=== PATIENT | female | born 1950 | race Caucasian/White ===

== ENCOUNTER → 2021-04-29 08:40 | Outpatient (BNVA) | payer OTHER, SELFPAY | PROVIDERS: PCP Internal Medicine; Referring Provider Internal Medicine; Visit Provider Physician Assistant | DX: Z12.11 Encounter for screening for malignant neoplasm of colon (principal); K59.09 Other constipation; Z78.9 Other specified health status | CPT/HCPCS: 99202 ==

== ENCOUNTER 2023-03-30 12:03 | Outpatient (AMB) | payer OTHER, SELFPAY ==
--- NOTE | 2023-03-30 12:12 | A.OFFVIS_ITS ---
Intake Vital Signs 03/30/23 12:20 Height 5 ft 2 in Weight 123 lb BMI 22.5 BP 150/72 H Blood Pressure Location Lt brachial Position Sitting Pulse 59 Intake Visit Reasons: pt requested appointment Intake Note: Patient follow up chronic constipation. Patient cc: constipation, GERD with burning sensation,and dysphagia with SOB. 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 Required: Yes Accompanied by: Daughter Allergies No Known Allergies Allergy (Verified 03/30/23 12:12) Medication List - Last Reconciled 03/30/23 by Dana Banda PA-C aspirin (Adult Aspirin Regimen) 81 mg PO DAILY atorvastatin 80 mg PO DAILY bisacodyl (Gentle Laxative (bisacodyl)) 10 mg [place] DAILY PRN docusate sodium (Colace) 200 mg (2 x 100 mg) PO BEDTIME ibuprofen 200 mg PO Q6H PRN levothyroxine 50 mcg PO DAILY meclizine 12.5 mg PO DAILY PRN methylcellulose (laxative) (Citrucel) 500 mg PO BID polyethylene glycol 3350 (Miralax) 17 grams PO DAILY torsemide 20 mg PO DAILY HPI HPI Comments History of Present Illness Details 73-year-old female multiple GI complaints - GERD, SOB her biggest c/o- she says she say pulmonary dr- all is fine Acid reflux- -taking a medication- she does not know what- she then shows me atorvastatin. She then says insurance would not cover- Last seen 2020 here at [facility] with constipation- never had colonoscopy- She is here with her DIL- they say she had a colonoscopy < 1 year ago and everything was fine- she uses 4 pillows at night in order to sleep because she has trouble breathing when she lays flat She sees pulmonary at [facility] in [place]-does not know doctors name She does not know her PCP DIL present- interprets- does not know hx/ detail No nausea, vomiting, hematemesis, hematochezia fever or chills PFSH Medical History (Updated 03/30/23 @ 14:10 by Dana Banda PA-C) Depression Vertigo Surgical History History of esophagogastroduodenoscopy (EGD) Hx of colonoscopy Family History Unknown No problems noted. Social History Household Members Other:: lives alone Alcohol intake: never Patient Tobacco Use Status: Never used Tobacco Current occupational status: disabled Review of Systems Const All systems reviewed & are unremarkable except as noted in HPI and below Card Denies chest pain, Reports dyspnea and Reports dyspnea on exertion Resp Reports dyspnea and Reports dyspnea on exertion GI Denies abdominal pain, Denies hematochezia, Denies change in bowel habits, Reports heartburn, Denies nausea and Denies vomiting Physical Exam Vital Signs: Last Vital Signs Pulse 59 03/30/23 12:20 BP 150/72 H 03/30/23 12:20 BMI result Body Mass Index 22.5 Const General: comfortable and no acute distress Orientation/consciousness: patient oriented x3 Limitations: language barrier Eyes Sclerae: sclerae normal Resp Effort & Inspection: normal respiratory effort and able to speak in complete sentences Auscultation: clear to auscultation bilaterally, no rales, no rhonchi and no wheezes Cardio Rate: regular rate Rhythm: regular rhythm Heart sounds: S1 normal heart sound present and S2 normal heart sound present GI Palpation (GI): Soft to palpation and nontender Auscultation: normal bowel sounds Skin General skin exam: no rashes or lesions noted Neuro General: patient oriented x3 Extrem General: Yes full ROM Psych Appearance: well kempt Mental Status: mental status grossly normal Affect: Labile affect present Attitude: cooperative Assessment & Plan Assessment & Plan (1) Poor historian: Comment: Patient accompanied by [id number]-difficult getting accurate hx Code(s): Z78.9 - Other specified health status Plan: Will check with PCP-re previous GI (2) Acid reflux: Comment: Omeprazole 20 mg Reflux precautions GI records from [facility] Code(s): K21.9 - Gastro-esophageal reflux disease without esophagitis Plan: Need updated PCP/ pulmonary note- Thank you Plan Omeprazole 20 mg Reflux precautions GI records from [facility]-difficult to assess without history/ conflicting report Medications: New omeprazole 20 mg PO DAILY 30 days PRN 30 caps 2RF reflux Patient Instructions: 73-year-old female referred with acid reflux, poor historian. Omeprazole 20 mg Reflux precautions GI records from [facility] Coding Level of Care Code Est Pt Level 4 (54941) Diagnoses Poor historian Z78.9 Acid reflux K21.9 Time Spent (min) 35
[2023-03-30 12:20] VITALS: BP 150/72; PULSE 59; BMI 22.5
== END 2023-03-30 13:07 | disposition home or self-care (01) ==
PROVIDERS: PCP Internal Medicine; Visit Provider Physician Assistant
DX: Z78.9 Other specified health status (principal); K21.9 Gastro-esophageal reflux disease without esophagitis
CPT/HCPCS: 99214

== ENCOUNTER → 2023-03-30 12:03 | Outpatient (BNVA) | payer OTHER, SELFPAY | PROVIDERS: PCP Internal Medicine; Visit Provider Physician Assistant | DX: K21.9 Gastro-esophageal reflux disease without esophagitis (principal); Z78.9 Other specified health status | CPT/HCPCS: 99212 ==

== ENCOUNTER 2023-05-05 09:01 | Outpatient (REF) | payer OTHER, SELFPAY ==
[2023-05-05 14:18] LABS: MANUAL DIFF FLAG NO
[2023-05-05 14:27] LABS: Basophils Percent Auto 0.7 % (0-2); Eosinophils Absolute Auto 0.1 X10*3/uL (0.0-0.4); Eosinophils Percent Auto 1.1 % (0-4); Hemoglobin 12.4 g/dl (12.0-16.0); Imm Gran Abs Auto 0.04 X10*3/uL (0.00-0.03); Imm Gran Pct Auto 0.7 % (0.0-0.4); Lymphocytes Absolute Auto 1.3 X10*3/uL (1.2-4.9); Lymphocytes Percent Auto 22.9 % (20-40); Mean Corpuscular Hemoglobin 28.1 pg (27.0-33.0); Mean Corpuscular Volume 90.5 fL (80.0-98.0); Mean Platelet Volume 9.5 fL (9.4-12.3); Monocytes Absolute Auto 0.5 X10*3/uL (0.1-1.2); Monocytes Percent Auto 8.4 % (2-11); Neutrophils Absolute Auto 3.7 x10*3/uL (2.0-8.3); Neutrophils Percent Auto 66.2 % (45-73); Platelet Count 456 X10*3/uL (160-400); Red Blood Count 4.42 X10*6/uL (4.20-5.50); Red Cell Distribution Width 13.9 % (11.0-16.0); White Blood Count 5.6 X10*3/uL (4.8-10.8)
[2023-05-05 14:57] LABS: Alanine Aminotransferase 9 U/L (0-31); Albumin Level 3.8 g/dL (3.5-5.0); Alkaline Phosphatase 101 U/L (39-117); Anion Gap 20 (12-20); Aspartate Amino Transferase 17 U/L (5-31); Bilirubin Total 0.4 mg/dL (0.0-1.0); Blood Urea Nitrogen 7 mg/dL (9-16); Calcium 9.6 mg/dL (8.4-10.2); Carbon Dioxide 27 mmol/L (22-29); Chloride 95 mmol/L (96-108); Estimated Glomerular Filt Rate > 60; Glucose Fasting 113 mg/dL (60-99); Iron 28 mcg/dL (30-160); Percent Iron Saturation 13 % (15-50); Potassium 3.8 mmol/L (3.3-5.1); Sodium 138 mmol/L (135-145); Total Iron Binding Capacity 211 mcg/dL (228-428); Total Protein 8.2 g/dL (6.5-8.0); Unsaturated Iron Binding 183 ug/dL
[2023-05-05 15:16] LABS: TSH reflex Free T4 1.85 uIU/mL (0.32-4.0)
[2023-05-05 15:18] LABS: Folate 12.5 ng/mL (> or = 4.0); Vitamin B12 950 pg/mL (200-900)
== END 2023-05-05 09:02 | disposition home or self-care (01) ==
LOC: HO.CHCLDS 09:01
PROVIDERS: Visit Provider Internal Medicine
DX: R53.83 Other fatigue (principal); N93.9 Abnormal uterine and vaginal bleeding, unspecified; E55.9 Vitamin D deficiency, unspecified
CPT/HCPCS: 36415; 80053; 82607; 82746; 83540; 84443; 85025

== ENCOUNTER 2023-09-14 09:11 | Outpatient (REF) | payer OTHER, SELFPAY ==
[2023-09-14 14:36] LABS: MANUAL DIFF FLAG NO
[2023-09-14 14:44] LABS: Basophils Percent Auto 0.4 % (0-2); Eosinophils Absolute Auto 0.1 X10*3/uL (0.0-0.4); Eosinophils Percent Auto 1.3 % (0-4); Hematocrit 39.8 % (37.0-47.0); Hemoglobin 12.5 g/dl (12.0-16.0); Imm Gran Abs Auto 0.01 X10*3/uL (0.00-0.03); Imm Gran Pct Auto 0.2 % (0.0-0.4); Lymphocytes Absolute Auto 1.5 X10*3/uL (1.2-4.9); Lymphocytes Percent Auto 32.6 % (20-40); Mean Corpuscular HGB Conc 31.4 g/dl (31.0-35.0); Mean Corpuscular Hemoglobin 28.9 pg (27.0-33.0); Mean Corpuscular Volume 91.9 fL (80.0-98.0); Mean Platelet Volume 9.5 fL (9.4-12.3); Monocytes Absolute Auto 0.4 X10*3/uL (0.1-1.2); Monocytes Percent Auto 8.4 % (2-11); Neutrophils Absolute Auto 2.7 x10*3/uL (2.0-8.3); Neutrophils Percent Auto 57.1 % (45-73); Platelet Count 333 X10*3/uL (160-400); Red Blood Count 4.33 X10*6/uL (4.20-5.50); Red Cell Distribution Width 14.2 % (11.0-16.0); White Blood Count 4.7 X10*3/uL (4.8-10.8)
[2023-09-14 15:00] LABS: Iron 77 mcg/dL (30-160); Percent Iron Saturation 28 % (15-50); Total Iron Binding Capacity 279 mcg/dL (228-428); Unsaturated Iron Binding 202 ug/dL
== END 2023-09-14 09:12 | disposition home or self-care (01) ==
LOC: HO.CHCLDS 09:11
PROVIDERS: Visit Provider Internal Medicine
DX: D50.8 Other iron deficiency anemias (principal)
CPT/HCPCS: 36415; 83540; 85025

== ENCOUNTER 2023-12-13 10:44 | Outpatient (REF) | payer OTHER, SELFPAY ==
[2023-12-13 15:06] LABS: Alanine Aminotransferase 10 U/L (0-31); Albumin Level 3.8 g/dL (3.5-5.0); Alkaline Phosphatase 70 U/L (39-117); Anion Gap 12 (12-20); Aspartate Amino Transferase 16 U/L (5-31); Bilirubin Total 0.4 mg/dL (0.0-1.0); Blood Urea Nitrogen 11 mg/dL (9-16); Calcium 9.1 mg/dL (8.4-10.2); Carbon Dioxide 27 mmol/L (22-29); Chloride 105 mmol/L (96-108); Cholesterol 194 mg/dL (<200); Estimated Glomerular Filt Rate > 60; Glucose Random 81 mg/dL (60-115); HDL Cholesterol 38 mg/dL (>40); LDL Cholesterol Calculated 136 mg/dL (<100); Potassium 3.8 mmol/L (3.3-5.1); Sodium 140 mmol/L (135-145); Total Protein 7.2 g/dL (6.5-8.0); Triglycerides 103 mg/dL (<150)
== END 2023-12-13 10:45 | disposition home or self-care (01) ==
LOC: HO.CHCLDS 10:44
PROVIDERS: Visit Provider Internal Medicine
DX: E78.2 Mixed hyperlipidemia (principal)
CPT/HCPCS: 36415; 80053; 80061

== ENCOUNTER 2024-07-18 11:12 | Outpatient (REF) | payer OTHER, SELFPAY ==
[2024-07-18 14:33] LABS: Alanine Aminotransferase 15 U/L (0-31); Albumin Level 4.1 g/dL (3.5-5.0); Alkaline Phosphatase 79 U/L (39-117); Anion Gap 9 (12-20); Aspartate Amino Transferase 22 U/L (5-31); Bilirubin Total 0.5 mg/dL (0.0-1.0); Blood Urea Nitrogen 13 mg/dL (9-16); Calcium 9.9 mg/dL (8.4-10.2); Carbon Dioxide 31 mmol/L (22-29); Chloride 105 mmol/L (96-108); Cholesterol 149 mg/dL (<200); Estimated Glomerular Filt Rate > 60; Glucose Random 81 mg/dL (60-115); HDL Cholesterol 41 mg/dL (>40); LDL Cholesterol Calculated 93 mg/dL (<100); Potassium 3.9 mmol/L (3.3-5.1); Sodium 141 mmol/L (135-145); Total Protein 7.6 g/dL (6.5-8.0); Triglycerides 78 mg/dL (<150)
[2024-07-18 14:53] LABS: TSH reflex Free T4 1.08 uIU/mL (0.32-4.0)
== END 2024-07-18 11:13 | disposition home or self-care (01) ==
LOC: HO.CHCLDS 11:12
PROVIDERS: Visit Provider Internal Medicine
DX: E78.2 Mixed hyperlipidemia (principal); E03.9 Hypothyroidism, unspecified
CPT/HCPCS: 36415; 80053; 80061; 84443

== ENCOUNTER 2025-03-29 09:12 | Outpatient (REF) | payer OTHER, SELFPAY ==
--- OUTSIDE RECORDS SUMMARY | 2025-03-29 09:20 | XMS_ITS | Clinical Summary ---
Author Organization [facility] Address [address] [place] [address] Care Team Providers Care Splitting Machine Operator Name Role Phone No, Pcp MD Primary Care Provider Unavailabl e Allergies No known active allergies Social History Tobacco Use Types Packs/Day Years Used Date Smoking Tobacco: Never Assessed Tobacco Cessation:Counseling Given: Not Answered Comments Unknown Sex and Gender Information Value Date Recorded Sex Assigned at Not on file Legal Sex Female 8:08 AM EDT Gender Identity Not on file Sexual Orientation Not on file Last Filed Vital Signs Vital Sign Reading Time Taken Comments Blood Pressure 151/85 01/14/2023 8:19 AM EDT Pulse 60 01/14/2023 8:19 AM EDT Temperature 36.7 C (98.1 F) 01/14/2023 8:19 AM EDT Respiratory Rate 18 01/14/2023 8:19 AM EDT Oxygen Saturation 96% 01/14/2023 8:19 AM EDT Inhaled Oxygen Concentration - - Weight - - Height - - Body Mass Index - - Plan of Treatment Health Maintenance Due Date Last Done Comments Bone Density (DXA) Scan 1950 MEDICARE ANNUAL WELLNESS VIS IT (AWV) 1950 HEPATITIS C SCREENING 01/25/1969 DTAP/TDAP/TD VACCINES (1 - Tdap) 01/25/1981 COLONOSCOPY (CRC) 01/25/1997 COLORECTAL CANCER SCREENING (CRC) 01/25/1997 CT COLONOGRAPHY (CRC) 01/25/1997 FIT-DNA (CRC) 01/25/1997 FIT/iFOBT (CRC) 01/25/1997 SIGMOIDOSCOPY (CRC) 01/25/1997 PNEUMOCOCCAL VACCINE: 50+ YE ARS (1 of 1 - PCV) 01/25/2002 ZOSTER VACCINE (1 of 2) 01/25/2002 COVID-19 IMMUNIZATION (1 - 2 024-25 season) 2024 INFLUENZA VACCINE (#1) 2025 RSV IMMUNIZATION (1 - 1-dose 75+ series) 01/25/2027 IPV VACCINES Aged Out No longer eligi ble based on patient's age to complete this topic MENINGOCOCCAL B VACCINE Aged Out No l onger eligible based on patient's age to complete this topic Insurance MEDICARE PART A AND B Care Teams Splitting Machine Operator Relationship Specialty Start Date End Date No, MD Haroon No Address [place] [address] PCP - General 01/14/23
--- OUTSIDE RECORDS SUMMARY | 2025-03-29 09:20 | XMS_ITS | Encounter Summary ---
Author Organization [facility] Address [address] [place] [address] Care Team Providers Care Leveler Name Role Phone Naveen Ley MD Primary Care Prov ider Reason for Visit * Reason Onset Date Comments chart prep 03/27/2025 Encounter Details Date Type Department Care Team (Late st Contact Info) Description 03/27/2025 Telephone [facility] [address] [place] [address] Naveen Ley MD [address] [place] [address] chart prep Social History Tobacco Use Types Packs/Day Years Used Date Smoking Tobacco: Never Smokeless Tobacco: Never Alcohol Use Standard Drinks/Week Comments Never 0 (1 standard drink = 0.6 oz pur e alcohol) Depression Answer Date Recorded Patient Health Questionnaire-9 Score 2 11/05/2024 Patient Health Questionnaire-9 Score 2 11/05/2024 Last PHQ-9: Questionnaire Data Not on file 0 11/05/2024 Housing Stability Answer Date Recorded What is your housing situation today? I have patrice lisa 03/07/[address] you li ve. Do you have problems with any of the following? None of the above 03/07/2025 Food Insecurity Answer Date Recorded Within the past 12 months, y ou worried that your food would run out before you got money to buy more: Never True 03/07/2025 Within the past 12 months,th e food you bought just didn't last and you didn't have enough money to get more: Never True Transportation Answer Date Recorded In the past 12 months, has l ack of transportation kept you from medical appts, meetings, work or from getting things needed for daily living? No 03/07/2025 Utilities Answer Date Recorded In the past 12 months, has t he electric, gas, oil or water company threatened to shut off services in your home? No 03/07/2025 Depression Answer Date Recorded Patient Health Questionnaire-2 Score 0 11/05/2024 Internet Access Answer Date Recorded Internet Access Q1 Yes 03/07/2025 Internet Access Q2 Not on file 03/07/2025 Comments Unknown Sex and Gender Information Value Date Recorded Sex Assigned at Female 06/07/2022 10:16 AM EDT Legal Sex Female 10:16 AM EDT Gender Identity Female 06/07/2022 10:16 AM EDT Sexual Orientation Straight 06/07/2022 10 :16 AM EDT documented as of this encounter Miscellaneous Notes * Telephone Encounter - Liv Mayfield MA - 03/27/2025 2:38 PM EDT Chart Prep Labs: done Images: not done Referrals: complete/ waiting on notes Vaccines due: PCV20, Tdap, RSV, and Zoster Screenings: colonoscopy and mammogram Overdue care gaps: Not applicable documented in this encounter Plan of Treatment Upcoming Encounters Date Type Department Care Team (Late st Contact Info) Description 04/09/2025 10:00 AM EDT [facility] Visit [facility] [address] [place] [address] Rashawn Craig [address] [place] [address] documented as of this encounter Visit Diagnoses Not on filedocumented in this encounter Additional Health Concerns Assessment Noted Time PHQ-9 Depression Total Score: 2 11/06/19 25 10:16 AM EDT documented as of this encounter Care Teams Leveler Relationship Specialty Start Date End Date Naveen Ley MD [address] [place] [address] PCP - General Internal Medicine 01/01/20 documented as of this encounter
--- OUTSIDE RECORDS SUMMARY | 2025-03-29 09:20 | XMS_ITS | Clinical Summary ---
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/2018 DX:Hypothyroidism due to acq uired atrophy of thyroid Mild intermittent asthma wit hout complication 06/22/2018 DX:Mild intermittent asthma without complication Chronic gastritis without bleeding 06/22/2018 DX:Chronic gastritis without bleeding Osteoarthritis 06/22/2018 DX:Osteoarthriti s Vaccination refused by parent 06/22/2018 DX :Vaccination refused by parent Family History Medical History Relation Name Comments Cataracts Father Cataracts Mother Hypertension Mother Blindness Neg Hx Glaucoma Neg Hx Macular degeneration Neg Hx Strabismus Neg Hx Relation Name Status Comments Daughter Alive Father Mother Son 1 Alive Son 2 Alive Social History Tobacco Use Types Packs/Day Years Used Date Smoking Tobacco: Never Smokeless Tobacco: Never Alcohol Use Standard Drinks/Week Comments No 0 (1 standard drink = 0.6 oz pur e alcohol) Comments Unknown Sex and Gender Information Value Date Recorded Sex Assigned at Not on file Legal Sex Female 4:55 AM EST Gender Identity Not on file Sexual Orientation Not on file Obstetrics History Plan of Treatment Health Maintenance Due Date Last Done Comments DTaP,Tdap,and Td Vaccines (1 - Tdap) 01/25/1971 Pneumococcal Vaccine: 50+ Years (1 of 1 - PCV) 01/25/2002 Zoster Vaccines (1 of 2) 01/25/2002 Colorectal Cancer Screening: Colonoscopy 07/11/2022 Falls Risk Assessment 07/11/2022 Hepatitis C Screening 07/11/2022 Osteoporosis Screening (Bone Density Screening) 07/11/2022 Social Influencers of Health Screening 07/11/2022 COVID-19 Vaccine ( season) 2024 Depression Screening 08/08/2024 Breast Cancer Screening 02/09/2025 02/10/20 23, 02/03/2022, 01/13/2021, Additional history exists Influenza Vaccine (#1) 2025 RSV Immunization Adult Patients (1 - 1-dose 75+ series) 01/25/2027 HIB Vaccines Aged Out No longer eligi ble based on patient's age to complete this topic HPV Vaccines Aged Out No longer eligi ble based on patient's age to complete this topic Hepatitis A Vaccines Aged Out No long er eligible based on patient's age to complete this topic Hepatitis B Vaccines Aged Out No long er eligible based on patient's age to complete this topic IPV Vaccines Aged Out No longer eligi ble based on patient's age to complete this topic MMR Vaccines Aged Out No longer eligi ble based on patient's age to complete this topic Meningococcal ACWY Vaccine Aged Out N o longer eligible based on patient's age to complete this topic Meningococcal B Vaccine Aged Out No l onger eligible based on patient's age to complete this topic RSV Immunization Patients Under 20 months Aged Out No longer eligible based on patient's age to complete this topic Varicella Vaccines Aged Out No longer eligible based on patient's age to complete this topic Procedures Procedure Name Priority Date/Time Associated Diagnosis Comments SIENA SCREENING DIGITAL Routine 02/09/2023 5:11 PM EDT Encounter for screening mammogram for malignant neoplasm of breast from Last 3 Months or Most Recently Relevant to Health Maintenance Results * SIENA SCREENING DIGITAL (02/09/2023 5:11 PM EDT) Anatomical Region Laterality Modality Mammography 02/09/2023 9:48 AM EDT Narrative 02/09/2023 5:11 PM EDT [facility] Diagnostic Imaging Department [address] [place], [place] [id number] Patient: ABE JAIN Talia Cristina/Age/Sex: 1950 - 73 - F Unit#: [id number] Location/Status: SPDIMAM/REG CLI Mnemonic/Ordering Site: [facility] Ordering Physician: NAVEEN TEJADA MD [facility] Screening Digital - 02/09/23 - [facility] Report Status:Signed EXAM: [facility] Screening Digital EXAM DATE AND TIME: 02/09/2023 10:31 AM HISTORY: Screening. Right breast biopsy in 2001, pathology benign. Personal history of endometrial carcinoma. COMPARISON: 02/03/22, 01/13/21, 10/24/18, 10/24/17 TECHNIQUE: CC and MLO views of both breasts were obtained using full field digital mammography. Bilateral digital breast tomosynthesis was performed in the MLO projection. Computer aided detection with [employer] 7.2-H and [place] Helper 3D 3.1 was employed. TISSUE DENSITY: b. There are scattered areas of fibroglandular density. FINDINGS: No suspicious masses, grouped microcalcifications, or areas of architectural distortion are seen. Vascular calcification is present. The skin is unremarkable. IMPRESSION: Stable mammographic appearance of the breasts. No evidence of malignancy is seen. A negative mammogram in the presence of a clinically suspicious palpable abnormality does not preclude the possibility of malignancy or alter the indications for biopsy. BI-RADS: Category 2: Benign RECOMMENDATION(S): 1: Routine screening mammogram BILATERAL in 1 year. [id number], [id number] 3342F, 7025F Dictating Physician: ADRIENNE BAILON MD Electronically Signed by: ADRIENNE BAILON MD Dic Date/Time: 02/09/231710 Sign date/Time: 02/09/231710 Procedure Note Adrienne Bailon MD - 09/13/2023 [facility] Diagnostic Imaging Department [address] [place] [address] Patient: ABE JAIN D.O.B./Age/Sex: 1950 - 73 - F Unit#: [id number] Location/Status: [facility] CLI Mnemonic/Ordering Site: [facility] Ordering Physician: NAVEEN TEJADA MD [facility] Screening Digital - 02/09/23 - 1038 Report Status:Signed EXAM: [facility] Screening Digital EXAM DATE AND TIME: 02/09/2023 10:31 AM HISTORY: Screening. Right breast biopsy in 2001, pathology benign.Personal history of endometrial carcinoma. COMPARISON: 02/03/22, 01/13/21, 10/24/18, 10/24/17 TECHNIQUE: CC and MLO views of both breasts were obtained using fullfield digital mammography. Bilateral digital breast tomosynthesis was performedin the MLO projection. Computer aided detection with [employer] 7.2-H andEnglish Helper 3D 3.1 was employed. TISSUE DENSITY: b. There are scattered areas of fibroglandular density. FINDINGS: No suspicious masses, grouped microcalcifications, or areas ofarchitectural distortion are seen. Vascular calcification is present. The skin is unremarkable. IMPRESSION: Stable mammographic appearance of the breasts. No evidence of malignancyis seen. A negative mammogram in the presence of a clinically suspicious palpable abnormality does not preclude the possibility of malignancy or alter the indications for biopsy. BI-RADS: Category 2: Benign RECOMMENDATION(S): 1: Routine screening mammogram BILATERAL in 1 year. [id number], [id number] 3342F, 7025F Dictating Physician: ADRIENNE BAILON MD Electronically Signed by: ADRIENNE BAILON MD Dic Date/Time: 02/09/231710 Sign date/Time: 02/09/231710 Naveen CANDELARIA BI PROCEDURES Fin al Result from Last 3 Months or Most Recently Relevant to Health Maintenance Care Teams Discovery Guide Relationship Specialty Start Date End Date Cuauhtemoc Thornton MD [address] [place] [address] PCP - General Internal Medicine 03/22/18
[2025-03-29 15:49] LABS: MANUAL DIFF FLAG NO
[2025-03-29 16:15] LABS: Hematocrit 43.0 % (37.0-47.0); Hemoglobin 13.5 g/dl (12.0-16.0); Imm Gran Abs Auto 0.02 X10*3/uL (0.00-0.03); Imm Gran Pct Auto 0.5 % (0.0-0.4); Lymphocytes Absolute Auto 1.4 X10*3/uL (1.2-4.9); Mean Corpuscular HGB Conc 31.4 g/dl (31.0-35.0); Mean Corpuscular Hemoglobin 29.0 pg (27.0-33.0); Mean Corpuscular Volume 92.3 fL (80.0-98.0); NRBC Abs Auto 0.000 X10*3/uL (0.0-0.012); NRBC Pct Auto 0.0 /100WBC (0.0-0.2); Platelet Count 303 X10*3/uL (160-400); Red Blood Count 4.66 X10*6/uL (4.20-5.50); White Blood Count 4.3 X10*3/uL (4.8-10.8)
[2025-03-29 16:47] LABS: Alanine Aminotransferase 13 U/L (0-31); Albumin Level 4.1 g/dL (3.5-5.0); Alkaline Phosphatase 78 U/L (39-117); Anion Gap 11 (12-20); Aspartate Amino Transferase 25 U/L (5-31); Blood Urea Nitrogen 10 mg/dL (9-16); Calcium 9.2 mg/dL (8.4-10.2); Carbon Dioxide 30 mmol/L (22-29); Chloride 103 mmol/L (96-108); Cholesterol 218 mg/dL (<200); Estimated Glomerular Filt Rate > 60; HDL Cholesterol 35 mg/dL (>40); Potassium 4.3 mmol/L (3.3-5.1); Sodium 140 mmol/L (135-145); Total Protein 7.1 g/dL (6.5-8.0); Triglycerides 213 mg/dL (<150)
== END 2025-03-29 09:13 | disposition home or self-care (01) ==
LOC: HO.CHCLDS 09:12
PROVIDERS: Visit Provider Internal Medicine
DX: E03.9 Hypothyroidism, unspecified (principal)
CPT/HCPCS: 36415; 80053; 80061; 84443; 85025